=== PATIENT | male | born 1940 | race African-American/Black ===

== ENCOUNTER → 2018-05-23 | Outpatient (CLI) | payer OTHER ==
[~2018-05-23] VITALS: Ht 172.7 cm; Wt 131.5 kg
[~2018-05-23] MED LIST: ASPIRIN EC81 M1 PO; ATENOLOL 25 MG25 M1 PO; ATORVASTATIN CA40 MG PO; CYMBALTA30 MG PO; DESYREL150 MG PO; DOXYCYCLINE 10100 M1 PO; FINASTERIDE5 MG PO; GENTAMICIN 0.1%15 G2; GLUMETZA500 M1 PO; LASIX 40 MG TAB40 M2 PO; MOBIC7.5 MG PO; MULTIVITAMINS1 EAC7 PO; NAPROSYN500 MG PO; NORCO 5-325 TA1 EACH PO; OMEPRAZOLE 20 M20 M1 PO; PHENTERMINE HCL15 MG PO; PIOGLITAZONE30 MG PO; POTASSIUM20 PO; PRADAXA150 MG PO; PROPRANOLOL 20M20 M1 PO; SANTYL OINTMENT30 G1; TRAMADOL 50 MG50 MG PO; ZOFRAN ODT4 MG PO
--- NOTE | ~2018-05-23 | P ---
[facility] [place] [address] PROCEDURE REPORT Name: RERE ROSS [id number] Admission: 05/23/18 Attend Phys: Duc Back Discharge: Date of : 44 Report #: [id number] THIS REPORT FOR: //name// CC: Duc Baker MD DATE OF SERVICE: 05/23/2018 PROCEDURE PERFORMED: Colonoscopy with biopsies. HISTORY OF PRESENT ILLNESS: The patient is a 78-year-old male, apparently had a recent Hemoccult-positive stool. He denies any obvious bright red blood per rectum or melena. He denies any abdominal pain. He does report some diarrhea recently. He is unsure when his last colonoscopy was performed, but it was several years ago. I do not have a copy of his old records. He takes Pradaxa for history of CVA, this has been held for the last several days. No family history of colon cancer. DESCRIPTION OF PROCEDURE: The risks and benefits of the procedure were explained to the patient, those risks including but not limited to bleeding, perforation, the risk of sedation. He understood these risks and gave informed consent. Sedation was given using propofol and ketamine per Anesthesia. Next, a digital rectal exam was initially performed, which was normal. Next, using a standard Olympus colonoscope, the scope was placed in the patient's anus and advanced under direct vision to the cecum. The overall prep was good. The cecum and ileocecal valve were normal in appearance. In the proximal ascending colon, a 4-mm sessile polyp was noted. This was removed with cold forceps. Random biopsies were also obtained today to rule out the possibility of microscopic colitis. Throughout the entire ascending, transverse, descending and sigmoid colon, multiple diverticula were noted. There was no evidence of inflammation. The rectal mucosa was normal. On retroflexion, no abnormalities were noted. The scope was then withdrawn and the procedure terminated. The patient tolerated the procedure well. IMPRESSION: 1. Pandiverticulosis. 2. Small ascending colon polyp. 3. Otherwise, normal colonoscopy. RECOMMENDATIONS: 1. Await biopsy results. 2. Repeat colonoscopy in 5 years. 3. No evidence of bleeding on exam today. If the patient has a history of anemia, consider possible further workup with upper endoscopy if this has not been performed. [address] [address] PROCEDURE REPORT Name: RERE ROSS Room #: REG ELLIOT Montes#: [id number] Admission: 05/23/18 Attend Phys: Duc Back Discharge: Date of : 44 Report #: [id number] Thank you for allowing me to participate in his care. By: [id number] Duc Ruano MD /nt
--- NOTE | ~2018-05-23 | PATH ---
[facility] [place] [address] PATHOLOGY RPT PROCEDURE Name: VANDANASANDER Rowley JR Room #: REG OFE Shantelle.#: [id number] Admission: 05/23/18 Date of : 44 Discharge: Report #: [id number] Path Case #: [id number] [facility] Accession Number: [id number] . 01 Material submitted: . PART A: RANDOM COLON BIOPSY PART B: ASCENDING COLON POLYP BIOPSY . 01 Clinical history: . Pre-OP DX: Blood in stool Post-OP DX: Colon polyps, diverticulosis . 02 Diagnosis: A. Large intestinal mucosa, random colon rule out microscopic colitis, endoscopic biopsy: - Focal mild active cryptitis, please see comment. - Negative for dysplasia or malignancy. . B. Polyp, ascending colon polyp, endoscopic biopsy: - Inflamed hyperplastic polyp. - Negative for dysplasia. (IUV:lelia; 05/24/2018) QMS/05/24/2018 . 02 Comment: Sections of the colonic mucosa designated "random colon" show focal cryptitis, and a moderately cellular lamina propria composed predominantly of lymphocytes and plasma cells and occasional eosinophils. Surface ulceration is not identified. There are no crypt abscesses, granulomas or viral inclusions. The process affects all the fragments with a similar intensity. Given the description, the differential diagnosis includes mild focal colitis, a resolved episode of colitis, or a medication-induced colitis, in addition to bowel preparation. Please correlate with clinical as well as endoscopic findings. . 02 Electronically signed: . Berta Ambrosio MD, Pathologist NPI- [id number] . 01 Gross description: . A. Received in formalin labeled "Sander Ross Jr, random colon BX, rule out microscopic colitis," are 4 segments of ramos soft tissue measuring 1.1 x 0.6 x 0.3 cm in aggregate dimensions and ranging from 0.3 to 0.5 cm in maximum dimension. The specimen is submitted entirely in cassette A1. . B. Received in formalin labeled "Sander Ross Jr, ascending colon polyp BX," is a single segment of ramos soft tissue measuring 0.4 [place] [address] PATHOLOGY RPT PROCEDURE Name: SANDER ROSS JR Room #: REG ELLIOT Montes#: [id number] Admission: 05/23/18 Date of : 44 Discharge: Report #: [id number] Path Case #: [id number] maximum dimension. The specimen is entirely submitted in cassette B1. (TSD; 05/23/2018) TOB/TOB . 02 Pathologist provided ICD-10: K63.5, K92.1 . 02 CPT . 013659, [id number] Performed at: [address], [place] [id number] MD Costa Carrlol MD Phone: [phone] Performed at: [address] [id number] MD Berta Ambrosio MD Phone: [phone]
== END | disposition home or self-care (01) ==
LOC: GI 07:02
DX: K63.5 Polyp of colon (principal); K57.30 Diverticulosis of large intestine without perforation or abscess without bleeding; F32.9 Major depressive disorder, single episode, unspecified; F41.9 Anxiety disorder, unspecified; Z68.41 Body mass index [BMI] 40.0-44.9, adult; G47.30 Sleep apnea, unspecified; I10 Essential (primary) hypertension; E78.5 Hyperlipidemia, unspecified; K21.9 Gastro-esophageal reflux disease without esophagitis; E11.9 Type 2 diabetes mellitus without complications; Z86.73 Personal history of transient ischemic attack (TIA), and cerebral infarction without residual deficits
CPT/HCPCS: 62110; 62900

== ENCOUNTER → 2018-11-17 | Outpatient (CLI) | payer OTHER ==
--- NOTE | 2018-11-19 06:27 | SLE ---
[facility] [address] [place] [address] POLYSOMNOGRAPHY STUDY Name: RERE ROSS JR Room #: REG [facility]#: [id number] Admission: 11/17/18 Attend Phys: Waylon Curtis MD Discharge: Date of : 44 Report #: [id number] THIS REPORT FOR: //name// CC: Waylon Horton MD [facility] Wily Olivia DATE OF SERVICE: 11/18/2018 ATTENDING PHYSICIAN: Jl Horton MD. HISTORY: The patient is 78 years old who weighs 309 pounds with a BMI of 47. The patient's [place] score was 5. The patient underwent diagnostic sleep study at [facility]. During the night study, the patient spent 388 minutes in bed and slept for 234 minutes with a low sleep efficiency of 60%. Sleep latency was 7.1 minutes with a REM latency of 372 minutes. Overall, sleep architecture showed increased stage 1 sleep, normal stage 2 sleep, absent N3 sleep and significantly reduced REM sleep, which was only 4% of total sleep time. During the night study, the patient had 35 obstructive apneas, no mixed or central apneas and 71 hypopneas. The patient's apnea hypopnea index was 27 per hour with a REM index of 35 per hour and a supine index of 27 per hour. EKG monitoring revealed abnormal rhythm. It was atrial fibrillation with frequent PVCs. No sustained arrhythmias observed. The patient's average heart rate was 66 beats per minute with a maximum 86 beats per minute. No clinically significant PLMS observed. Nocturnal oximetry study revealed an average oxygen saturation of 95% with a lowest of 84%. 1.9 minutes were spent at oxygen saturation less than 89%. The patient did meet the criteria for CPAP initiation, but it was late in the night and due to reduced sleep efficiency, CPAP could not be initiated. IMPRESSION: 1. 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 Total apnea-hypopnea index 27.1 per hour with a REM AHI of 35 per hour. 2. No clinically significant nocturnal hypoxia. 3. No clinically significant periodic limb movement in sleep. 4. Abnormal EKG with atrial fibrillation and frequent PVCs. RECOMMENDATIONS: 1. The patient should return to the sleep lab for CPAP initiation. [address] [address] POLYSOMNOGRAPHY STUDY Name: VANDANARERE Halley Room #: REG [facility]#: [id number] Admission: 11/17/18 Attend Phys: Waylon Curtis MD Discharge: Date of : 44 Report #: [id number] 2. Once optimal CPAP pressure is achieved, then follow up in 4-6 weeks to assess compliance with CPAP and to document clinical improvement. 3. Weight loss is strongly advised. 4. Avoid [employer] depressants. 5. Cautioned regarding driving until symptoms of sleep apnea resolve with the above recommendation. 6. Follow up with Cardiology if clinically indicated for abnormal EKG. <ELECTRONICALLY SIGNED> By: Waylon Curtis MD 11/19/18 0627 [id number] Waylon Curtis MD /nt
== END ==
LOC: SLEEPLAB 10:24
DX: G47.30 Sleep apnea, unspecified (principal); R94.31 Abnormal electrocardiogram [ECG] [EKG]; I48.91 Unspecified atrial fibrillation; I49.3 Ventricular premature depolarization

== ENCOUNTER → 2020-06-16 | Outpatient (CLI) | payer OTHER | LOC: SJCVC 13:41 | PROVIDERS: ATTEND Internal Medicine | DX: I48.21 Permanent atrial fibrillation (principal); R94.31 Abnormal electrocardiogram [ECG] [EKG]; G47.33 Obstructive sleep apnea (adult) (pediatric); E78.5 Hyperlipidemia, unspecified; Z79.01 Long term (current) use of anticoagulants; Z79.899 Other long term (current) drug therapy ==